=== PATIENT | male | born 1980 | race Caucasian/White ===

== ENCOUNTER 2019-08-28 22:14 | Observation (INO) ==
[2019-08-28] MEDS ORDERED: KETOROLAC 30 MG/1 ML VIAL IV STA (23:57)
[2019-08-29 00:35] LABS: Basophils % 0.2 % (0.0-0.8); Eosinophils # 0.1 10*3/uL (0.0-0.87); Eosinophils % 0.5 % (0.00-10.9); Hematocrit 43.9 VOL% (42.0-52.0); Hemoglobin 15.6 GM/DL (14.0-18.0); Immature Granulocytes % 0.3 %; Immature Granulocytes Absolute 0.05 #; Lymphocytes # 1.2 10*3/uL (1.4-4.0); Lymphocytes % 8.4 % (21.2-54.2); Mean Corpuscular HGB Conc 35.5 GM/DL (32-36); Mean Corpuscular Volume 92.8 FL (87-102); Mean Platelet Volume 10.8 FL (9.6-12.0); Neutrophils % 77.6 % (38.7-73.9); Platelet Count 227 T/CUMM (130-400); Red Blood Count 4.73 MC/CUMM (3.8-5.5); Red Cell Distribution Width 11.7 % (9.3-17.3); White Blood Count 14.6 T/CUMM (4-12)
[2019-08-29 00:41] LABS: Apearance,Urine CLEAR (Clear); Bilirubin,Urine Negative (Negative); Blood, Urine Negative (Negative); Glucose,Urine (UA) Negative (Negative); Ketones,Urine 5 mg/dL (Negative); Mucus,Urine Occasional /LPF (Occasional); Nitrite,Urine Negative (Negative); Protein,Urine Negative; Urine Color Yellow (Yellow); Urine Specific Gravity 1.027 (1.001-1.035)
[2019-08-29 00:54] LABS: Alanine Aminotransferase 15 U/L (16-61); Albumin 4.1 G/DL (3.4-5.0); Alkaline Phosphatase 84 U/L (45-117); Aspartate Amino Transferase 23 U/L (0-37); Bilirubin,Direct < 0.100 MG/DL (0.0-0.20); Bilirubin,Indirect 0.5 MG/DL (0.0-1.0); Blood Urea Nitrogen 16 MG/DL (7-18); Calcium 9.3 MG/DL (8.5-10.1); Estimated Glom Filtration Rate 150 ML/MIN; Glucose 118 MG/DL (74-106); Osmolality,Calculated 265.5 MOS/KG (273-304)
[2019-08-29] MEDS ORDERED: MORPHINE 4 MG/1 ML VIAL IV STA (02:05)
[2019-08-29] MEDS ORDERED: PIPERACILLIN/TAZOBACTAM 3,375 MG in SODIUM CHLORIDE 0.9% 100 ML IV STA (02:05)
[2019-08-29] MEDS ORDERED: ONDANSETRON 4 MG/2 ML VIAL IV PRN (02:06)
[2019-08-29] MEDS ORDERED: ACETAMINOPHEN 325 MG TABLET PO PRN (02:06)
[2019-08-29] MEDS: HYDROmorphone 2 MG/1 ML VIAL IV PRN ×3 (04:14→17:12)
[2019-08-29] MEDS: DEXTROSE 5% NACL 0.45% 1,000 ML IV SCH ×3 (06:15→22:14)
[2019-08-29] MEDS ORDERED: HYDROmorphone 2 MG/1 ML VIAL IV PRN (07:44)
[2019-08-29] MEDS ORDERED: hydrALAZINE 20 MG/1 ML VIAL IV PRN (08:32)
[2019-08-29] MEDS: PANTOPRAZOLE 40 MG TABLET PO SCH (09:05)
[2019-08-30] MEDS: HYDROmorphone 2 MG/1 ML VIAL IV PRN (00:45)
[2019-08-30 05:20] LABS: Basophils % 0.2 % (0.0-0.8); Eosinophils % 0.2 % (0.00-10.9); Hemoglobin 15.6 GM/DL (14.0-18.0); Immature Granulocytes % 0.4 %; Immature Granulocytes Absolute 0.06 #; Lymphocytes # 1.1 10*3/uL (1.4-4.0); Lymphocytes % 6.6 % (21.2-54.2); Mean Corpuscular HGB Conc 35.5 GM/DL (32-36); Mean Corpuscular Volume 94.2 FL (87-102); Mean Platelet Volume 11.3 FL (9.6-12.0); Monocytes % 22.7 % (1.7-12.7); Neutrophils % 69.9 % (38.7-73.9); Platelet Count 204 T/CUMM (130-400); Red Blood Count 4.67 MC/CUMM (3.8-5.5); Red Cell Distribution Width 12.1 % (9.3-17.3); White Blood Count 16.2 T/CUMM (4-12)
[2019-08-30 05:58] LABS: Eosinophils 1 % (0-10); Lymphocytes 8 % (20-55); Platelet Estimate Adequate; Segmented Neutrophils 76 % (50-85); Total Cells Counted 100
[2019-08-30 06:05] LABS: Albumin 3.5 G/DL (3.4-5.0); Bilirubin,Total 1.6 MG/DL (0.2-1.0); Calcium 9.1 MG/DL (8.5-10.1); Osmolality,Calculated 268.1 MOS/KG (273-304); Total Protein 7.5 G/DL (6.4-8.3)
[2019-08-30] MEDS ORDERED: BUPIVACAINE MPF 0.25% 30 ML VIAL ONE (07:08)
[2019-08-30] MEDS ORDERED: TISSUE ADHESIVE 1 EACH APPLICATOR TOP ONE (07:08)
[2019-08-30] MEDS ORDERED: LIDOCAINE 1%/EPI INJ 20 ML VIAL ONE (07:08)
[2019-08-30] MEDS ORDERED: LIDOCAINE 2% 5 ML VIAL ONE (09:25)
[2019-08-30] MEDS ORDERED: propofoL 200 MG/20 ML VIAL IV ONE (09:25)
[2019-08-30] MEDS ORDERED: fentaNYL 250 MCG/5 ML VIAL ONE (09:25)
[2019-08-30] MEDS ORDERED: DESFLURANE 1 UNIT/15 MINUTE INH ONE (09:25)
[2019-08-30] MEDS ORDERED: ACETAMINOPHEN 1,000 MG/100 ML VIAL IV ONE (09:26)
[2019-08-30] MEDS ORDERED: DEXAMETHASONE 4 MG/1 ML VIAL ONE (09:26)
[2019-08-30] MEDS ORDERED: GLYCOPYRROLATE 0.4 MG/2 ML VIAL ONE (09:26)
[2019-08-30] MEDS ORDERED: ONDANSETRON 4 MG/2 ML VIAL ONE (09:26)
[2019-08-30] MEDS ORDERED: MIDAZOLAM 2 MG/2 ML VIAL ONE (09:26)
[2019-08-30] MEDS ORDERED: KETOROLAC 30 MG/1 ML VIAL ONE (09:26)
[2019-08-30] MEDS ORDERED: ROCURONIUM 100 MG/10 ML VIAL IV ONE (09:27)
[2019-08-30] MEDS ORDERED: LACTATED RINGERS 1,000 ML IV ONE (09:27)
[2019-08-30] MEDS ORDERED: NEOSTIGMINE 10 MG/10 ML VIAL ONE (09:27)
[2019-08-30] MEDS ORDERED: KETAMINE 500 MG/10 ML VIAL ONE (09:27)
[2019-08-30] MEDS ORDERED: SUCCINYLCHOLINE 200 MG/10 ML VIAL ONE (09:27)
[2019-08-30] MEDS ORDERED: ONDANSETRON 4 MG/2 ML VIAL IV PRN (10:25)
[2019-08-30] MEDS ORDERED: ALBUTEROL/IPRATROPIUM 3 ML NEB RESP TX PRN (10:25)
[2019-08-30] MEDS: PANTOPRAZOLE 40 MG TABLET PO SCH (11:15)
[2019-08-30] MEDS: DEXTROSE 5% NACL 0.45% 1,000 ML IV SCH (16:09)
[2019-08-30] MEDS: amLODIPine 5 MG TABLET PO SCH (16:44)
[2019-08-30] MEDS: KETOROLAC 15 MG/1 ML VIAL IV PRN (19:53)
[2019-08-31] MEDS: DEXTROSE 5% NACL 0.45% 1,000 ML IV SCH (01:44)
[2019-08-31 04:43] LABS: Basophils % 0.2 % (0.0-0.8); Eosinophils % 0.2 % (0.00-10.9); Hemoglobin 12.7 GM/DL (14.0-18.0); Immature Granulocytes % 0.9 %; Immature Granulocytes Absolute 0.12 #; Lymphocytes # 0.9 10*3/uL (1.4-4.0); Lymphocytes % 6.6 % (21.2-54.2); Mean Corpuscular HGB Conc 35.3 GM/DL (32-36); Monocytes % 19.4 % (1.7-12.7); Neutrophils % 72.7 % (38.7-73.9); Platelet Count 180 T/CUMM (130-400); Red Blood Count 3.79 MC/CUMM (3.8-5.5); Red Cell Distribution Width 12.1 % (9.3-17.3); White Blood Count 12.9 T/CUMM (4-12)
[2019-08-31 05:14] LABS: Albumin 2.6 G/DL (3.4-5.0); Bilirubin,Total 0.8 MG/DL (0.2-1.0); Calcium 8.7 MG/DL (8.5-10.1); Osmolality,Calculated 274.7 MOS/KG (273-304); Total Protein 6.4 G/DL (6.4-8.3)
[2019-08-31 05:22] LABS: Band Neutrophils 2 % (0-10); Lymphocytes 11 % (20-55); Segmented Neutrophils 74 % (50-85)
[2019-08-31] MEDS: KETOROLAC 15 MG/1 ML VIAL IV PRN (05:22)
[2019-08-31 05:23] LABS: Platelet Estimate Normal; Total Cells Counted 100
[2019-08-31] MEDS: PANTOPRAZOLE 40 MG TABLET PO SCH (09:34)
[2019-08-31] MEDS: amLODIPine 5 MG TABLET PO SCH (09:36)
[2019-08-31] MEDS ORDERED: FUROSEMIDE 40 MG/4 ML VIAL IV ONE (11:05)
[2019-08-31 11:45] VITALS: BP 138/85
== END 2019-08-31 13:15 | disposition home or self-care (01) ==
LOC: N.EDINP 22:14 → N.ED 22:14 → N.3E 08-29 02:48
PROVIDERS: ADMIT Surgery; ATTEND Surgery
PROC: LAPCHOL (2019-08-30 07:25)